=== PATIENT | female | born 1975 | race Caucasian/White ===

== ENCOUNTER 2021-05-05 06:58 | Observation (INO) ==
[2021-05-05] MEDS ORDERED: 0.9 % Sodium Chloride 1,000 ML IVC ONE ×2 (07:19→08:22)
[2021-05-05] MEDS ORDERED: Ipratropium/Albuterol Neb 3 ML IH ONE (07:19)
[2021-05-05 07:49] LABS: Basophils % 0.3 %; Eosinophils % 0.2 %; Hematocrit 39.9 % (35.3-44.9); Hemoglobin 13.4 g/dL (11.5-15.4); Immature Granulocytes % 0.3 % (0-4); Lymphocytes # 0.9 K/mcL (0.6-4.6); Lymphocytes % 9.9 %; Mean Corpuscular HGB Conc 33.6 g/dL (31.6-35.5); Mean Corpuscular Hemoglobin 30.7 pg (28.0-33.3); Mean Corpuscular Volume 91.3 fL (83.0-100.0); Mean Platelet Volume 11.2 fL (9.4-12.4); Monocytes # 0.4 K/mcL (0.0-1.3); Monocytes % 3.7 %; Platelet Count 246 K/mcL (140-400); Red Blood Count 4.37 M/mcL (3.82-4.97); Red Cell Distribution Width 13.3 % (11.5-14.5); Segmented Neutrophils % 85.6 %; White Blood Count 9.4 K/mcL (4.3-11.1)
[2021-05-05 08:01] LABS: BUN/Creatinine Ratio 22 (6-26); Blood Urea Nitrogen 12 mg/dL (6-20); Calcium 8.3 mg/dL (8.6-10.3); Carbon Dioxide 23 mEq/L (23-29); Chloride 103 mEq/L (98-107); Glucose 155 mg/dL (70-105); Osmolality,Calculated 285 (280-300); Sodium 136 mEq/L (136-145); eGFR For African Americans > 60 (> 60); eGFR For Non-African Americans > 60 (> 60)
[2021-05-05 08:03] LABS: Troponin I < 0.03 ng/mL (< 0.04)
[2021-05-05] MEDS ORDERED: Azithromycin 500 MG in 0.9 % Sodium Chloride 250 ML IVPB ONE (08:22)
[2021-05-05] MEDS ORDERED: Naloxone 0.4 MG/ML INJ IVP PRN (09:18)
[2021-05-05] MEDS ORDERED: Acetaminophen 325 MG TABLET PO PRN (09:18)
[2021-05-05] MEDS ORDERED: Ondansetron 4 MG/2 ML VIAL IVP PRN (09:18)
[2021-05-05] MEDS ORDERED: Ipratropium/Albuterol Neb 3 ML IH PRN (09:20)
[2021-05-05] MEDS ORDERED: cefTRIAXone 2,000 MG in 0.9 % Sodium Chloride Mini Bag 100 ML IVPB SCH (10:00)
[2021-05-05] MEDS ORDERED: Azithromycin 500 MG in 0.9 % Sodium Chloride 250 ML IVPB SCH (11:00)
[2021-05-05] MEDS ORDERED: methocarbamoL 750 MG TABLET PO PRN (12:06)
[2021-05-05] MEDS ORDERED: Temazepam 15 MG CAPSULE PO PRN (12:06)
[2021-05-05] MEDS ORDERED: Acetaminophen/Butalbital/CaffeineTABLET PO PRN (12:07)
[2021-05-05] MEDS ORDERED: methocarbamoL 500 MG TABLET PO PRN (12:30)
[2021-05-05] MEDS: 0.9 % Sodium Chloride 1,000 ML IVC SCH ×2 (12:38→22:28)
[2021-05-05] MEDS: *HR* OxyCODONE/APAP 7.5/325 TABLET PO PRN ×2 (17:01→23:21)
[2021-05-05] MEDS: Pregabalin 50 MG CAPSULE PO SCH (20:08)
[2021-05-05] MEDS ORDERED: SUMAtriptan succinate 50 MG TABLET PO PRN (23:41)
[2021-05-06 05:55] LABS: Basophils % 0.4 %; Eosinophils # 0.1 K/mcL (0.0-0.6); Hematocrit 36.4 % (35.3-44.9); Hemoglobin 12.2 g/dL (11.5-15.4); Immature Granulocytes % 0.1 % (0-4); Lymphocytes # 2.1 K/mcL (0.6-4.6); Lymphocytes % 23.3 %; Mean Corpuscular HGB Conc 33.5 g/dL (31.6-35.5); Mean Corpuscular Hemoglobin 31.2 pg (28.0-33.3); Mean Corpuscular Volume 93.1 fL (83.0-100.0); Mean Platelet Volume 10.8 fL (9.4-12.4); Monocytes # 0.5 K/mcL (0.0-1.3); Monocytes % 5.4 %; Neutrophils # 6.4 K/mcL (1.6-8.9); Platelet Count 242 K/mcL (140-400); Red Blood Count 3.91 M/mcL (3.82-4.97); Red Cell Distribution Width 13.6 % (11.5-14.5); Segmented Neutrophils % 69.8 %; White Blood Count 9.2 K/mcL (4.3-11.1)
[2021-05-06 06:19] LABS: BUN/Creatinine Ratio 15 (6-26); Blood Urea Nitrogen 7 mg/dL (6-20); Calcium 8.2 mg/dL (8.6-10.3); Carbon Dioxide 27 mEq/L (23-29); Chloride 108 mEq/L (98-107); Glucose 118 mg/dL (70-105); Osmolality,Calculated 287 (280-300); Potassium 3.9 mEq/L (3.5-5.1); Sodium 139 mEq/L (136-145); eGFR For African Americans > 60 (> 60); eGFR For Non-African Americans > 60 (> 60)
[2021-05-06 08:25] VITALS: BP 136/88
[2021-05-06] MEDS: Pregabalin 50 MG CAPSULE PO SCH (08:30)
[2021-05-06] MEDS ORDERED: Multivit/Ca/Min/Fe/FA 1 TAB TABLET PO SCH (09:00)
[2021-05-06] MEDS ORDERED: Azithromycin 500 MG in 0.9 % Sodium Chloride 250 ML IVPB SCH (09:00)
[2021-05-06] MEDS ORDERED: UPADACITINIB 15 MG PO SCH (09:00)
[2021-05-06] MEDS ORDERED: PARoxetine 20 MG TABLET PO SCH (09:00)
[2021-05-06] MEDS: 0.9 % Sodium Chloride 1,000 ML IVC SCH (09:02)
== END 2021-05-06 10:15 | disposition home or self-care (01) ==
LOC: INPPIK 06:58 → EMEROOPIK 06:58 → INPPIK 10:12
PROVIDERS: ADMIT Family Medicine; ATTEND Family Medicine